=== PATIENT | male | born 2000 | race Two or more races ===

== ENCOUNTER 2020-06-17 14:08 | Emergency (ER) | payer OTHER ==
[2020-06-17] MEDS ORDERED: ACETAMINOPHEN 325 MG TABLET PO STA (14:53)
[2020-06-17] MEDS ORDERED: IBUPROFEN 600 MG TABLET PO STA (14:53)
--- NOTE | 2020-06-17 15:44 | CT Report ---
PROCEDURE: CERVICAL SPINE WO INDICATIONS: fall with ladder; pain C/T/L spine TECHNIQUE: Noncontrast 3 mm thick sections acquired from the skull base to the T4 level. Sagittal and coronal r eformats were then constructed. For radiation dose reduction, the following was used: automated exp osure control, adjustment of mA and/or kV according to patient size. COMPARISON: None. FINDINGS: There is no fracture demonstrated. Normal cervical spine alignment. Normal configuration of the crani ocervical junction. Intervertebral disc spaces are congruent and maintained. The facets are congruent with no dislocation or subluxation or asymmetric widening. Posterior element appear intact. Preverte bral and paraspinous soft tissues are unremarkable on unenhanced exam. IMPRESSION: No CT evidence of acute or metastatic cervical spine injury. Reviewed by: Jones Potter MD on 06/17/2020 3:42 PM PST Approved by: Jones Potter MD on 06/17/2020 3:42 PM PST Station ID: [id number]
--- NOTE | 2020-06-17 15:45 | CT Report ---
PROCEDURE: THORACIC SPINE WO INDICATIONS: Trauma; fall from ladder; pain C/T/L spine TECHNIQUE: Noncontrast 3 mm thick sections acquired through the region of interest in the thoracic spine. Sagit amalia and coronal reformats were then constructed. For radiation dose reduction, the following was used : automated exposure control, adjustment of mA and/or kV according to patient size. COMPARISON: None. FINDINGS: Image quality: Excellent. Bones: Normal thoracic spine vertebral body height and alignment. No evidence of fracture. Interverte bral disc spaces are congruent and maintained. No facet subluxation or dislocation. Partially visuali zed ribs are intact. Soft tissues: No paravertebral masses or hematomas. Visualized posteromedial lungs appear clear. IMPRESSION: No CT evidence of acute or metastatic thoracic spine injury. Reviewed by: Jones Potter MD on 06/17/2020 3:44 PM PST Approved by: Jones Potter MD on 06/17/2020 3:44 PM [facility] Station ID: [id number]
--- NOTE | 2020-06-17 15:46 | CT Report ---
PROCEDURE: LUMBAR SPINE WO INDICATIONS: Trauma, fall with ladder; pain C/T/L spine TECHNIQUE: Noncontrast 3 mm thick sections acquired from the T12 level to the sacrum. Sagittal and coronal refo rmats were constructed. For radiation dose reduction, the following was used: automated exposure co ntrol, adjustment of mA and/or kV according to patient size. COMPARISON: None. FINDINGS: Normal lumbar vertebral body height and alignment. There is no fracture demonstrated. Intervertebral disc spaces are congruent and maintained. Facets are congruent with no subluxation or dislocation dem onstrated. Sacroiliac joints are normal in appearance. Regional soft tissues are unremarkable. IMPRESSION: No acute finding. Reviewed by: Jones Potter MD on 06/17/2020 3:45 PM PST Approved by: Jones Potter MD on 06/17/2020 3:45 PM PST Station ID: [id number]
[2020-06-17] MEDS ORDERED: methocarbamoL 500 MG TABLET PO STA (15:54)
--- NOTE | 2020-06-17 16:00 | ED Physician Documentation ---
PD HPI Fall - Stated complaint Stated Complaint: BACK INJ - Chief complaint Chief Complaint: Trauma Hd/Nk - History obtained from History obtained from: Patient - History of Present Illness Mechanism of injury: Other (He states he was climbing up a ladder at work and the ladder slid out on soft ground and it fell side and backwards. He curled and tucked his head and landed on the hard ground in the thoracic and lumbar area. some strain of neck as he landed. Did not strike head.) Fall distance: 10 to 15ft Where injury occurred: Work Timing - onset: How many hours ago (1), Today Injury(ies) location: Back. No: Head, Chest, Abdomen Quality of pain: Pain, Aching Associated symptoms: Neck pain (lower part of neck). No: LOC, AMS Symptoms improve with: Rest Worsens with: Movement, Other (no pain with breathing.) Similar symptoms before: Has not had sx before Recently seen: Not recently seen Review of Systems Constitutional: denies: Fever Nose: denies: Rhinorrhea / runny nose, Congestion Throat: denies: Sore throat Cardiac: denies: Chest pain / pressure Respiratory: denies: Dyspnea, Cough GI: denies: Abdominal Pain Skin: denies: Abrasion (s), Laceration (s) Musculoskeletal: reports: Neck pain, Back pain Neurologic: denies: Focal weakness, Numbness, Altered mental status, Headache, Head injury, LOC PD PAST MEDICAL HISTORY - Past Medical History Past Medical History: No Musculoskeletal: None - Past Surgical History Past Surgical History: No - Present Medications Home Medications: Ambulatory Orders Medication Instructions Recorded Confirmed Ibuprofen [Motrin] 600 mg PO TID PRN #25 tab 06/17/20 methocarbamoL [Robaxin] 500 mg PO Q8H PRN #25 tablet 06/17/20 - Allergies Allergies/Adverse Reactions: Allergies Allergy/AdvReac Type Severity Reaction Status Date / Time latex Allergy Hives Verified 06/17/20 14:42 - Social History Does the pt smoke?: No Smoking Status: Never smoker PD ED PE NORMAL - Vitals Vital signs reviewed: Yes - General General: Alert and oriented X 3, Well developed/nourished, Other (sitting up with c-collar in place. No apparent distress. Moving all extremities. ) - HEENT HEENT: Atraumatic - Neck Neck: Supple, no meningeal sign, No adenopathy, Other (some tenderness lower neck paracervical muscles. ) - Cardiac Cardiac: RRR, No murmur - Respiratory Respiratory: Clear bilaterally, Other (no rib tenderness. ) - Abdomen Abdomen: Soft, Non tender, Non distended - Back Back: No CVA TTP, Other (tender in mid thoracic area and mid to lower lumbar area. No noted deformity. Has ROM of the back and sits up and leans foreward of his own to show where he is hurting. ) - Derm Derm: Normal color, Warm and dry - Extremities Extremities: No tenderness to palpate, Normal ROM s pain - Neuro Neuro: Alert and oriented X 3, No motor deficit, No sensory deficit, Normal speech Results - Vitals Vitals: Vital Signs - 24 hr 06/17/20 06/17/20 06/17/20 14:37 15:30 16:00 Temperature 36.0 C L Heart Rate 86 92 76 Respiratory 20 24 19 Rate Blood Pressure 156/84 H 163/89 H 115/78 O2 Saturation 98 98 100 Oxygen O2 Source Room air - Rads (name of study) spine CT (C,T,L) Radiology: Prelim report reviewed (no acute fracture nor misalignment. ), See rad report PD MEDICAL DECISION MAKING - ED course Complexity details: reviewed results, considered differential, d/w patient Departure - Departure Disposition: 01 Home, Self Care Clinical Impression: Acute strain of neck muscle Qualifiers: Encounter type: initial encounter Qualified Code(s): S16.1XXA - Strain of muscle, fascia and tendon at neck level, initial encounter Fall from ladder Qualifiers: Encounter type: initial encounter Qualified Code(s): W11.XXXA - Fall on and from ladder, initial encounter Contusion of back Qualifiers: Encounter type: initial encounter Laterality: unspecified laterality Qualified Code(s): S20.229A - Contusion of unspecified back wall of thorax, initial encounter Condition: Stable Record reviewed to determine appropriate education?: Yes Instructions: ED Contusion Back, ED Sprain Strain Neck Prescriptions: Ibuprofen [Motrin] 600 mg PO TID PRN #25 tab PRN Reason: Pain methocarbamoL [Robaxin] 500 mg PO Q8H PRN #25 tablet PRN Reason: Spasms Comments: Your scan pictures of the spine do not show any obvious fractures, displacement or obvious disc problems. You will still be sore because of the impact on your back and some injury to ligaments and muscles. This will likely be for sore for several days or even a week or more. Light activity for 2 to 3 days if needed based on discomfort. Anti-inflammatory such as ibuprofen 3 times a day with food. Add Tylenol if needed for pain and Robaxin if needed for spasms and stiffness. Heat and gentle stretching for the area to reduce muscle stiffness. Physical treatments such as massage and chiropractic are also good for this. These I believe are typically covered under L&I as well but check with the particular chiropractor ahead of time. Recheck if not improved well over the next week. Forms: Activity restrictions Discharge Date/Time: 06/17/20 16:13
[2020-06-17 16:03] VITALS: BP 115/78
== END 2020-06-17 16:13 | disposition home or self-care (01) ==
LOC: ED 14:08
DX: S16.1XXA Strain of muscle, fascia and tendon at neck level, initial encounter (principal); S20.229A Contusion of unspecified back wall of thorax, initial encounter; M54.6 Pain in thoracic spine; M54.5 Low back pain; W11.XXXA Fall on and from ladder, initial encounter; Y93.89 Activity, other specified; Y99.0 Civilian activity done for income or pay
CPT/HCPCS: 72125; 72128; 72131; 99284; A9270

== ENCOUNTER 2021-01-12 12:02 | Emergency (ER) | payer OTHER ==
[2021-01-12 12:16] VITALS: BP 136/99
--- NOTE | 2021-01-12 12:31 | ED Physician Documentation ---
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 He rinsed them out and improved except for FB sensation right eye. Here to ER and he says it rinsed out finally just as checking in. Still feeling FB sensation) Similar symptoms before: Has not had sx before Recently seen: Not recently seen Review of Systems Eyes: denies: Loss of vision, Decreased vision, Photophobia Nose: denies: Rhinorrhea / runny nose, Congestion Throat: denies: Sore throat Respiratory: denies: Cough PD PAST MEDICAL HISTORY - Past Medical History Cardiovascular: None Respiratory: None Neuro: None Endocrine/Autoimmune: None Musculoskeletal: None - Past Surgical History Past Surgical History: No - Present Medications Home Medications: Ambulatory Orders Medication Instructions Recorded Confirmed Ibuprofen [Motrin] 600 mg PO TID PRN #25 tab 06/17/20 methocarbamoL [Robaxin] 500 mg PO Q8H PRN #25 tablet 06/17/20 Erythromycin Base [Erythromycin 1 applic RIGHTEYE QID 3 Days #3.5 01/12/21 Ophthalmic Ointment] gm - Allergies Allergies/Adverse Reactions: Allergies Allergy/AdvReac Type Severity Reaction Status Date / Time adhesive tape Allergy Rash Verified 01/12/21 12:16 latex Allergy Hives Verified 06/17/20 14:42 - Social History Does the pt smoke?: No Smoking Status: Never smoker PD ED PE NORMAL - Vitals Vital signs reviewed: Yes - General General: Alert and oriented X 3, No acute distress, Well developed/nourished - HEENT HEENT: PERRL, EOMI PD ED PE EXPANDED - Eyes Eyes: PERRL, EOMI, Corneal abrasion (right eye lower outer in about 8 oclock area. Superficial linear 1/2 cm. Otherwise some conjunctival redness lower aspect both eyes. ), Fluorescein uptake. No: Conj/sclera FB, Corneal FB Results - Vitals Vitals: Vital Signs - 24 hr 01/12/21 01/12/21 12:10 12:15 Temperature 36.3 C L 36.5 C Heart Rate 63 63 Respiratory 16 16 Rate Blood Pressure 136/99 H 136/99 H O2 Saturation 100 100 Oxygen O2 Source Room air PD MEDICAL DECISION MAKING - ED course Complexity details: re-evaluated patient (L&I form filled out. ), considered differential (Look for foreign body and abrasions.), d/w patient Departure - Departure Disposition: 01 Home, Self Care Clinical Impression: Corneal abrasion Qualifiers: Encounter type: initial encounter Laterality: unspecified laterality Qualified Code(s): S05.00XA - Injury of conjunctiva and corneal abrasion without foreign body, unspecified eye, initial encounter Condition: Stable Record reviewed to determine appropriate education?: Yes Instructions: ED Eye Injury Corneal Abrasion Prescriptions: Erythromycin Base [Erythromycin Ophthalmic Ointment] 1 applic RIGHTEYE QID 3 Days #3.5 gm Comments: I did not see any remaining foreign bodies on exam. You do have a small abrasion in the area that is hurting still. This should heal up well within a day or 2. I would anticipate improvement enough to work tomorrow. Use the erythromycin antibiotic ointment 4 times a day for the next 2 to 3 days. This reduces the chance of infection related to the foreign bodies that worsen there. It also acts as a lubricant on the surface of the eye to reduce discomfort from the abrasion. Tylenol if needed for pains. Recheck if not completely resolved in the next couple of days. Forms: Activity restrictions Discharge Date/Time: 01/12/21 13:10
[2021-01-12] MEDS ORDERED: ERYTHROMYCIN OPHTH OINT 1 GM TUBE EACHEYE STA (12:51)
== END 2021-01-12 13:10 | disposition home or self-care (01) ==
LOC: ED 12:02
DX: S05.01XA Injury of conjunctiva and corneal abrasion without foreign body, right eye, initial encounter (principal); W45.8XXA Other foreign body or object entering through skin, initial encounter; Y93.H9 Activity, other involving exterior property and land maintenance, building and construction; Y92.008 Other place in unspecified non-institutional (private) residence as the place of occurrence of the external cause; Y99.0 Civilian activity done for income or pay
CPT/HCPCS: 99282; 99283; J3490

== ENCOUNTER 2021-02-05 06:13 | Emergency (ER) | payer SELFPAY ==
[2021-02-05 06:49] LABS: MUDS CUTOFF CONCENTRATIONS CUTOFF CONC BELOW:
[2021-02-05 06:49] LABS: BASOPHILS % (AUTO) 0.4 %; EOSINOPHILS % (AUTO) 0.1 %; LYMPHOCYTES # (AUTO) 2.8 10^3/uL (1.5-3.5); LYMPHOCYTES % (AUTO) 26.4 %; MEAN CORPUSCULAR HEMOGLOBIN 29.6 pg (27.0-31.0); MEAN CORPUSCULAR VOLUME 86.9 fL (80.0-94.0); MEAN PLATELET VOLUME 9.5 fL (7.4-11.4); MONOCYTES # (AUTO) 0.7 10^3/uL (0.0-1.0); MONOCYTES % (AUTO) 6.5 %; NEUTROPHILS # (AUTO) 6.9 10^3/uL (1.5-6.6); NEUTROPHILS % (AUTO) 66.3 %; PLT - PLATELET COUNT 282 10^3/uL (130-450); RED BLOOD COUNT 5.41 10^6/uL (4.70-6.10); RED CELL DISTRIBUTION WIDTH 13.2 % (12.0-15.0); WHITE BLOOD COUNT 10.4 x10^3/uL (4.8-10.8)
[2021-02-05 06:51] LABS: BILIRUBIN,URINE NEGATIVE (NEGATIVE); GLUCOSE, URINE (UA) NEGATIVE (NEGATIVE); KETONES,URINE (UA) TRACE mg/dL (NEGATIVE); LEUKOCYTE ESTERASE, URINE NEGATIVE (NEGATIVE); NITRITE,URINE NEGATIVE (NEGATIVE); OCCULT BLOOD,URINE TRACE-INTA (NEGATIVE); PROTEIN,URINE NEGATIVE (NEGATIVE); UROBILINOGEN,URINE 0.2 (NORMAL) E.U./dL (NORMAL)
[2021-02-05 06:53] LABS: CLARITY,URINE CLEAR (CLEAR)
[2021-02-05 07:03] LABS: AMPHETAMINE SCREEN,URINE NEGATIVE (NEGATIVE); BARBITURATE SCREEN,UR NEGATIVE (NEGATIVE); BENZODIAZEPINES SCREEN, URINE NEGATIVE (NEGATIVE); COCAINE SCREEN URINE NEGATIVE (NEGATIVE); METHADONE SCREEN, URINE NEGATIVE (NEGATIVE); METHAMPHETAMINES SCREEN, URINE NEGATIVE (NEGATIVE); OPIATE SCREEN, URINE NEGATIVE (NEGATIVE); OXYCODONE SCREEN, URINE NEGATIVE (NEGATIVE); PROPOXYPHENE SCREEN, URINE NEGATIVE (NEGATIVE); THC CANNABINOID SCREEN, URINE POSITIVE (NEGATIVE); TRICYCLIC ANTIDEPRESSANT,URINE NEGATIVE (NEGATIVE)
[2021-02-05 07:59] LABS: B. PARAPERTUSSIS- RESP PCR PAN NOT DETECTED; B. PERTUSSIS- RESP PCR PANEL NOT DETECTED; C. PNEUMONIAE- RESP PCR PANEL NOT DETECTED; CORONAVIRUS 229E-RESP PCR NOT DETECTED; CORONAVIRUS HKU1-RESP PCR NOT DETECTED; CORONAVIRUS NL63-RESP PCR NOT DETECTED; CORONAVIRUS OC43-RESP PCR NOT DETECTED; HUMAN METAPNEUMOVIRUS NOT DETECTED; INFLUENZA A- RESP PCR PANEL NOT DETECTED; INFLUENZA B - RESP PCR PANEL NOT DETECTED; M. PNEUMONIAE- RESP PCR PANEL NOT DETECTED; PARAINFLUENZA VIRUS 1 NOT DETECTED; PARAINFLUENZA VIRUS 2 NOT DETECTED; PARAINFLUENZA VIRUS 3 NOT DETECTED; PARAINFLUENZA VIRUS 4 NOT DETECTED; RHINOVIRUS/ENTEROVIRUS NOT DETECTED; RSV- RESP PCR PANEL NOT DETECTED; SARS-CoV-2 -RESP PCR PANEL NOT DETECTED
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
[2021-02-05 08:10] LABS: ACETAMINOPHEN < 10 ug/mL (10-30); ALBUMIN 4.5 g/dL (3.2-5.5); ALBUMIN/GLOBULIN RATIO 1.3 (1.0-2.2); ALKALINE PHOSPHATASE 79 IU/L (42-121); ALT ALANINE AMINOTRANSFERASE 26 IU/L (10-60); AST ASPARTATE AMINOTRANSFERASE 22 IU/L (10-42); BILIRUBIN,TOTAL 0.8 mg/dL (0.2-1.0); BUN - BLOOD UREA NITROGEN 11 mg/dL (6-20); CALCIUM 9.2 mg/dL (8.5-10.3); CARBON DIOXIDE - CO2 26 mmol/L (21-32); CHLORIDE 99 mmol/L (101-111); CREATININE 0.6 mg/dL (0.6-1.2); ETOH - ETHANOL 55.1 mg/dL; GFR - MDRD 168 (>89); GLUCOSE 102 mg/dL (70-100); LIPASE 23 U/L (22-51); POTASSIUM 3.4 mmol/L (3.5-5.0); SALICYLATE < 6.0 mg/dL; SODIUM 139 mmol/L (135-145); TOTAL PROTEIN 7.9 g/dL (6.7-8.2)
[2021-02-05 14:43] VITALS: BP 140/80
== END 2021-02-05 08:05 | disposition home or self-care (01) ==
LOC: ED 06:13
DX: R45.851 Suicidal ideations (principal); F43.10 Post-traumatic stress disorder, unspecified; Z72.89 Other problems related to lifestyle; Z20.822 Contact with and (suspected) exposure to COVID-19
CPT/HCPCS: 0202U; 36415; 80053; 80306; 80307; 80320; 80329; 81003; 83690; 84443; 85025; 99283; 81001; 87086